=== PATIENT | female | born 1985 | race African-American/Black ===

== ENCOUNTER 2021-03-11 10:13 | Day surgery (SDC) | payer OTHER ==
[2021-03-06 16:36] LABS: Hemoglobin 12.6 g/dL (12.0-15.5); Mean Corpuscular HGB CONC 32.6 g/dL (32.0-36.0); Mean Corpuscular Hemoglobin 30.5 pg (27.0-33.0); Mean Corpuscular Volume 93.7 fl (81.6-98.3); Mean Platelet Volume 10.6 fl (7.4-10.4); Platelet Count 260 10x3/uL (150-450); RBC Distribution Width 12.8 % (11.5-14.5); Red Blood Cell (RBC) Count 4.13 10x6/uL (3.90-5.03); White Blood Cell (WBC) Count 6.5 10x3/uL (3.5-10.5)
[2021-03-06 17:36] LABS: BHCG - Serum Negative (NEGATIVE); Pregs Control Background? CLEAR/WHITE (CLR/WHITE); Pregs Control Bar Appear? YES (CONTROL BAR)
[2021-03-07 07:52] LABS: SARS-CoV-2 PCR by NAA Not Detected (NotDetected)
[2021-03-08 09:34] VITALS: BMI 36.4
[2021-03-11] MEDS ORDERED: Gabapentin 300 MG CAP ONE (10:18)
[2021-03-11] MEDS ORDERED: CeleCOXIB 100 MG CAP ONE (10:19)
[2021-03-11] MEDS ORDERED: Lidocaine 1% MPF 2 ML VIAL ONE (10:19)
[2021-03-11] MEDS ORDERED: PROPOFOL 20 ML ONE (11:20)
[2021-03-11] MEDS ORDERED: Fentanyl 100 MCG/2 ML VIAL ONE (11:20)
[2021-03-11] MEDS ORDERED: Ketorolac Tromethamine 30 MG/ML VIAL ONE (11:21)
[2021-03-11] MEDS ORDERED: Dexamethasone 20 MG/5 ML VIAL ONE (11:21)
[2021-03-11] MEDS ORDERED: Ondansetron PF 4 MG/2 ML Vial ONE (11:21)
[2021-03-11] MEDS ORDERED: Lidocaine 2% PF 100 mg/5 ml Syringe ONE (11:21)
[2021-03-11] MEDS ORDERED: HYDROcodone/Acetaminophen 5/325 mg Tablet ONE (13:45)
== END 2021-03-11 14:55 | disposition home or self-care (01) ==
LOC: CSHSDC 10:13
PROVIDERS: ATTEND Student in an Organized Health Care Education/Training Program
DX: N93.9 Abnormal uterine and vaginal bleeding, unspecified (principal); D64.9 Anemia, unspecified; Z88.1 Allergy status to other antibiotic agents; Z91.040 Latex allergy status; Z79.899 Other long term (current) drug therapy
CPT/HCPCS: 84703; 85027; 86850; 86900; 86901; 88305; J1100; J1885; J2001; J2405; J2704; J3010; U0003; U0005